=== PATIENT | female | born 1955 | race African-American/Black ===

== ENCOUNTER 2018-03-17 10:39 | Emergency (ER) | payer BC ==
[~2018-03-17] VITALS: Ht 165.1 cm; Wt 79.4 kg
[~2018-03-17 10:39] MED LIST: AMLODIPINE BESY10 MG PO; TRAZODONE HCL50 MG PO; TRIAMTERENE-HCTZ1 EA PO; TYLENOL WITH C1 EACH PO
== END 2018-03-17 11:02 | disposition left against medical advice (07) ==
LOC: ER 10:39
DX: R22.2 Localized swelling, mass and lump, trunk (principal)

== ENCOUNTER 2019-05-15 19:24 | Emergency (ER) | payer BC ==
[~2019-05-15] VITALS: Ht 165.1 cm; Wt 79.4 kg
[2019-05-15] MEDS ORDERED: HYDROCODONE/APAP 7.5MG-325MG 1 EA TAB PO PRN (20:00)
--- NOTE | 2019-05-15 20:25 | Diagnostic Imaging Report ---
Exam: Knee 3 views History: Pain Comparison: None. Findings: No fracture or malalignment. Mild degenerative arthrosis of the medial compartment. Impression: No acute osseous abnormality Mild degenerative arthrosis of the knee Signed by: Dr. Ang Miranda M.D. on 05/15/2019 8:22 PM
[2019-05-15] MEDS ORDERED: ULTRAM50 MG PO (20:41)
== END 2019-05-15 22:29 | disposition home or self-care (01) ==
LOC: ER 19:24
DX: S80.02XA Contusion of left knee, initial encounter (principal); W01.0XXA Fall on same level from slipping, tripping and stumbling without subsequent striking against object, initial encounter; Y92.008 Other place in unspecified non-institutional (private) residence as the place of occurrence of the external cause; I10 Essential (primary) hypertension
CPT/HCPCS: 99282